=== PATIENT | female | born 2005 | race Caucasian/White ===

== ENCOUNTER 2025-05-11 08:07 | Emergency (ER) | payer OTHER, SELFPAY ==
[2025-05-11 08:23] VITALS: BP 121/75; PULSE 94; RESP 16; TEMP 36.4; O2SAT 100
[2025-05-11 08:39] LABS: EDUAAPPEAR Clear; EDUABILI Negative (Negative); EDUABLOOD Negative (Negative); EDUACOLOR1 Yellow; EDUAGLUCOSE Negative (Negative); EDUAKETONE 1+ (Negative); EDUALEUKO Trace (Negative); EDUANITRATE Negative (Negative); EDUAPH 7.5; EDUAPROTEIN 1+ (Negative); EDUASPGRAVITY 1.020; EDUAUROBILI 1.0
--- NOTE | 2025-05-11 08:42 | ED_ITS ---
HPI - General Adult General Chief complaint: Urogenital-Female Stated complaint: Uti Symptoms Source: patient Mode of arrival: ambulatory Limitations: no limitations History of Present Illness HPI narrative: Patient presents for evaluation of urinary symptoms for last 2 days. Symptoms include urinary urgency, frequency, and hesitancy. She denies any fever, chills, nausea, vomiting, low back pain, abdominal pain, vaginal bleeding or discharge. She has a Nexplanon. She is not taking any medications to assist with her symptoms. Related Data Allergies Allergy/AdvReac Type Severity Reaction Status Date / Time No Known Allergies Allergy Verified 05/11/25 08:28 Review of Systems Review of Systems: CONSTITUTIONAL: Denies fever, chills, or sweats. EYES: Denies visual changes, redness, or discharge. ENT: Denies rhinorrhea, congestion, sore throat, or otalgia. CARDIOVASCULAR: Denies chest pain, palpitations, or edema. RESPIRATORY: Denies cough or dyspnea. GASTROINTESTINAL: Denies abdominal pain, nausea, vomiting, or diarrhea. GENITOURINARY: reports urinary frequency, urgency and hesitancy. Denies vaginal bleeding or discharge. SKIN: Denies rash or itching. MUSCULOSKELETAL: Denies back pain, joint pain, or myalgia. NEUROLOGIC: Denies headache, numbness, dizziness, or weakness. PSYCHIATRIC: Denies anxiety or depression. PMFSH Past Medical History Medical History No pertinent past medical history Surgical History Surgical History (Updated 05/11/25 @ 08:43 by Ridge Garcia, [facility], ) No pertinent past surgical history Family History Family History Mother Family history non-contributory Social History Social History Smoking status: Never smoker Substance use: never Gender identity (if verbalized by the patient): Female Spiritual care concerns: No Exam Narrative: GENERAL: Well-appearing, well-nourished, and in no acute distress. HEAD: Normocephalic, atraumatic. EYES: PERRLA and EOMI. ENT: Nares clear, no rhinorrhea or epistaxis. Mucous membranes moist. Oropharynx without tonsillar hypertrophy exudate or other lesions. Bilateral TMs pearly vilchis nonbulging NECK: Supple. No adenopathy or masses. No carotid bruits or JVD CHEST: Clear to auscultation. No respiratory distress. No wheezes rales or rhonchi HEART: Regular rate and rhythm. No murmur heard. Normal peripheral pulses. ABDOMEN: Soft, nontender, nondistended, normal active bowel sounds. BACK: No CVA tenderness EXTREMITIES: Normal range of motion. No edema. SKIN: Warm, dry, no rash. NEURO: No focal deficits. Alert and oriented x3. PSYCH: Normal mood and affect. Course Course Emergency Course: This is a 19-year-old female who presented for evaluation of urinary symptoms. She has evidence of a urinary tract infection on her testing today. Will send urine culture. Start Macrobid. Increase hydration. Follow up with primary provider. Go to the ER for worsening symptoms. Patient in agreement with plan of care. Level of Care: Express Care Visit Vital Signs Vital signs: Vital Signs Temperature 36.4 C 05/11/25 08:23 Pulse Rate 94 05/11/25 08:23 Respiratory Rate 16 05/11/25 08:23 Blood Pressure 121/75 05/11/25 08:23 Pulse Oximetry 100 05/11/25 08:23 Temperature 36.4 C 05/11/25 08:23 Pulse Rate 94 05/11/25 08:23 Respiratory Rate 16 05/11/25 08:23 Blood Pressure 121/75 05/11/25 08:23 Pulse Oximetry 100 05/11/25 08:23 Medical Decision Making Vital Signs Vital Signs: Vital Signs Temperature 36.4 C 05/11/25 08:23 Pulse Rate 94 05/11/25 08:23 Respiratory Rate 16 05/11/25 08:23 Blood Pressure 121/75 05/11/25 08:23 Pulse Oximetry 100 05/11/25 08:23 Temperature 36.4 C 05/11/25 08:23 Pulse Rate 94 05/11/25 08:23 Respiratory Rate 16 05/11/25 08:23 Blood Pressure 121/75 05/11/25 08:23 Pulse Oximetry 100 05/11/25 08:23 Lab Data Labs: Lab Results 05/11/25 Range/Units 08:38 POC Urine Color Yellow POC Urine Clarity Clear POC Urine pH 7.5 POC Ur Specif [place] 1.020 POC Urine Protein 1+ (Negative) POC Ur Glucose (UA) Negative (Negative) POC Urine Ketones 1+ (Negative) POC Urine Blood Negative (Negative) POC Urine Nitrite Negative (Negative) POC Urine Bilirubin Negative (Negative) POC Urine Urobilinogen 1.0 POC U Leukocyte Esteras Trace (Negative) Discharge Plan Discharge Clinical Impression: UTI (urinary tract infection) Patient Disposition: Home Condition: Stable Instructions: Antibiotic Form, Urinary Tract Infection in Women (DC) Patient Language: [place] Prescriptions: New nitrofurantoin monohyd/m-cryst [Macrobid] 100 mg capsule 100 mg PO Q12H 7 Days Qty: 14 0RF Rx Instructions: must administer with a meal/food Follow-up/Referrals: Isacc Kirby MD [Physician, Family Practice] Time of Disposition: 08:39
== END 2025-05-11 08:41 | disposition home or self-care (01) ==
PROVIDERS: Emergency Provider Nurse Practitioner
DX: N39.0 Urinary tract infection, site not specified (principal)
CPT/HCPCS: 81003; 87077; 87086; 87186; 99203; G0463